=== PATIENT | male | born 1955 | race Caucasian/White ===

== ENCOUNTER 2019-04-09 20:32 | Observation (INO) | payer OTHER ==
[~2019-04-09] VITALS: Ht 182.9 cm; Wt 95.6 kg
--- NOTE | 2019-04-09 21:10 | NUR ---
PT HR 115 AFTER RECEIVING CARDIZEM BOLUS. CARDIZEM INFUSION STARTED AT 5MG/HR
[2019-04-09] MEDS ORDERED: METOPROLOL TART50 MG PO (21:11)
[2019-04-09] MEDS ORDERED: PRINIVIL20 MG PO (21:11)
[2019-04-09 21:12] LABS: BASOPHILS 0.3 % (0-2); EOSINOPHILS 1.9 % (0-7); HEMATOCRIT 39.3 % (42.0-54.0); HEMOGLOBIN 14.5 g/dL (13.5-17.5); IMMATURE GRANULOCYTES 0.5 % (0-5); LYMPHOCYTES 34.3 % (15-50); MCH 34.9 pg (26.0-34.0); MCHC 36.9 g/dL (31.0-37.0); MCV 94.7 fL (80.0-100.0); MEAN PLATELET VOLUME 10.4 fL (7.4-10.4); PLATELET COUNT 190 10x3/uL (130-400); RBC 4.15 10x6/uL (4.20-6.10); RDW 14.1 % (11.5-14.5); WBC 7.4 10x3/uL (4.8-10.8)
[2019-04-09] MEDS ORDERED: GLUCOPHAGE1000 MG PO (21:12)
[2019-04-09] MEDS ORDERED: VICTOZA0.6 MG/0.1 SQ (21:12)
[2019-04-09 21:26] LABS: ALBUMIN 4.2 g/dL (3.4-5.0); ALKALINE PHOSPHATASE 66 U/L (46-116); ALT (SGPT) 17 U/L (10-68); BILIRUBIN - TOTAL 0.69 mg/dL (0.2-1.3); CALC OSMOLALITY 283 mosm/kg (275-300); CALCIUM 9.1 mg/dL (8.5-10.1); CARBON DIOXIDE 28.2 mmol/L (21.0-32.0); CHLORIDE - SERUM 102 mmol/L (98-107); GLUCOSE 181 mg/dL (74-106); POTASSIUM - SERUM 3.7 mmol/L (3.5-5.1); PROTEIN - SERUM 7.1 g/dL (6.4-8.2); SODIUM 139 mmol/L (136-145); UREA NITROGEN 14 mg/dL (7-18); eGFR NON AFRICAN AMERICAN 80 mL/min (90-120)
[2019-04-09 21:30] VITALS: BP 142/68
[2019-04-09 21:39] LABS: CKMB 1.1 U/L (0.0-3.6); CREATINE KINASE 63 UL (21-232); MAGNESIUM - SERUM 1.5 mg/dL (1.8-2.4); THYROID STIMULATING HORMONE 2.14 uIU/mL (0.36-3.74)
[2019-04-09 21:40] LABS: TROPONIN-I < 0.017 ng/mL (0.000-0.060)
--- NOTE | 2019-04-09 21:59 | NUR ---
CARDIZEM INFUSION RATE CHANGED TO 10ML/HR PER EDP ORDER.
[2019-04-09 22:00] VITALS: BP 112/85
[2019-04-09 22:30] VITALS: BP 102/68
[2019-04-09 23:00] VITALS: BP 94/52
[2019-04-09 23:30] VITALS: BP 107/74
--- NOTE | 2019-04-09 23:30 | NUR ---
PT REPORTS DECREASE IN DISCOMFORT. PT ALERT, ORIENTED. PT DENIES NEEDS AT THIS TIME.
[2019-04-10] VITALS (7 sets, daily range): BP systolic 102–126; BP diastolic 55–79; Ht 182.9 cm; Wt 95.6 kg
--- NOTE | 2019-04-10 00:10 | NUR ---
PT RESTING ON BED. LIGHTS LOW FOR COMFORT. CALL LIGHT IN REACH.
--- NOTE | 2019-04-10 02:19 | NUR ---
RECIEVED REPORT FROM TRISHA MICHELLE IN ER AT 0128. RECIEVED TO FLOOR AT 0145 IN W/C. ALERT AND ORIENTED X4. TRANSFERED SELF FROM W/C TO BED. IV TO LEFT AC WITH CARDIZEM AT 15ML/HR. NO REDNESS OR SWELLING TO SITE. ASSESSMENT COMPLETED. DENIES ANY NEEDS AT THIS TIME.
[2019-04-10 05:21] LABS: BASOPHILS 0 % (0-2); EOSINOPHILS 1.6 % (0-7); HEMATOCRIT 36.4 % (42.0-54.0); HEMOGLOBIN 13.3 g/dL (13.5-17.5); IMMATURE GRANULOCYTES 0.5 % (0-5); LYMPHOCYTES 32.1 % (15-50); MCH 34.5 pg (26.0-34.0); MCHC 36.5 g/dL (31.0-37.0); MCV 94.5 fL (80.0-100.0); MONOCYTES 12.1 % (2-11); NEUTROPHILS 53.7 % (40-80); RBC 3.85 10x6/uL (4.20-6.10); RDW 14.3 % (11.5-14.5); WBC 5.6 10x3/uL (4.8-10.8)
[2019-04-10 05:30] LABS: PLATELET COUNT 146 10x3/uL (130-400)
[2019-04-10 05:47] LABS: ALBUMIN 3.5 g/dL (3.4-5.0); ALKALINE PHOSPHATASE 57 U/L (46-116); ALT (SGPT) 17 U/L (10-68); BILIRUBIN - TOTAL 0.93 mg/dL (0.2-1.3); CALC OSMOLALITY 284 mosm/kg (275-300); CALCIUM 8.5 mg/dL (8.5-10.1); CARBON DIOXIDE 30.6 mmol/L (21.0-32.0); CHLORIDE - SERUM 103 mmol/L (98-107); CREATININE - SERUM 0.8 mg/dL (0.6-1.3); GLUCOSE 147 mg/dL (74-106); POTASSIUM - SERUM 3.5 mmol/L (3.5-5.1); PROTEIN - SERUM 6.2 g/dL (6.4-8.2); SODIUM 142 mmol/L (136-145); UREA NITROGEN 11 mg/dL (7-18); eGFR NON AFRICAN AMERICAN > 90 mL/min (90-120)
[2019-04-10 05:48] LABS: MAGNESIUM - SERUM 1.9 mg/dL (1.8-2.4)
--- NOTE | 2019-04-10 07:15 | NUR ---
REPORT RECEIVED. WILL CONTINUE WITH POC. PT CURRENTLY LYING SEMI FOWLERS. CALL LIGHT W/I REACH. PT IS AAO AND UP AD HAL. RR EVEN AND UNLABORED ON RA. CARDIZEM INFUSING @15ML/HR VIA L.AC PIV. PT IS NPO UNTIL SEEN BY CARDIOLOGY. PT DENIES ANY NEEDS. NO S/S OF DISTRESS NOTED. WILL CTM.
[2019-04-10 12:04] LABS: APPEARANCE CLEAR (CLEAR); BILIRUBIN NEGATIVE (NEGATIVE); COLOR YELLOW (YELLOW); GLUCOSE NEGATIVE (NEGATIVE); KETONE NEGATIVE (NEGATIVE); NITRITE NEGATIVE (NEGATIVE); PROTEIN NEGATIVE (NEGATIVE)
[2019-04-10 12:14] LABS: % SATURATION 39 % (15-55); IRON 108 ug/dl (35-150); TOTAL IRON BIND CAPACITY 275 ug/dl (260-445); UNSAT IRON BIND CAPACITY 167 ug/dl (150-375)
[2019-04-10 12:45] LABS: FERRITIN 38 ng/mL (3-244)
--- NOTE | 2019-04-10 13:06 | NUR ---
I have reviewed this patient and I concur with the Shift Assessment completed by the Licensed Practical Nurse today this shift.
--- NOTE | 2019-04-10 16:52 | NUR ---
RECEIVED VERBAL ORDERS FROM TO ORDER 300MG OF RYTHMOL NOW A LOADING DOSE AND TO ALSO ADMINISTER 2100 DOSE WELL. ORDERED PLACED. WILL ADMINISTER 300MG OF MEDICATION NOW AND CTM.
--- NOTE | 2019-04-10 22:42 | NUR ---
PATIENT VERY ANGRY THAT HE HAS CONVERTED TO NORMAL SINUS AND THAT NO ONE HAS SEEN HIM SO THAT HE MAY GO HOME. PATIENT STATES THAT HE HAS RESPONSIBILITIES.
[2019-04-11] VITALS: BP 119/75
[2019-04-11 04:00] VITALS: BP 129/82
[2019-04-11 05:28] LABS: BASOPHILS 0 % (0-2); EOSINOPHILS 1.5 % (0-7); HEMATOCRIT 36.5 % (42.0-54.0); HEMOGLOBIN 13.3 g/dL (13.5-17.5); IMMATURE GRANULOCYTES 0.6 % (0-5); LYMPHOCYTES 22.7 % (15-50); MCH 34.3 pg (26.0-34.0); MCHC 36.4 g/dL (31.0-37.0); MCV 94.1 fL (80.0-100.0); MONOCYTES 13.9 % (2-11); NEUTROPHILS 61.3 % (40-80); PLATELET COUNT 118 10x3/uL (130-400); RBC 3.88 10x6/uL (4.20-6.10); RDW 14.2 % (11.5-14.5); WBC 5.2 10x3/uL (4.8-10.8)
[2019-04-11 05:40] LABS: CALC OSMOLALITY 283 mosm/kg (275-300); CALCIUM 8.2 mg/dL (8.5-10.1); CHLORIDE - SERUM 104 mmol/L (98-107); CREATININE - SERUM 0.7 mg/dL (0.6-1.3); GLUCOSE 180 mg/dL (74-106); POTASSIUM - SERUM 3.7 mmol/L (3.5-5.1); SODIUM 140 mmol/L (136-145); UREA NITROGEN 13 mg/dL (7-18); eGFR NON AFRICAN AMERICAN > 90 mL/min (90-120)
--- NOTE | 2019-04-11 07:33 | NUR ---
[id number] ANY MORE IV CARDIZEM. IV SL. WILL MONITOR.
[2019-04-11] MEDS ORDERED: PROPAFENONE HC150 MG PO (12:05)
--- NOTE | 2019-04-11 13:55 | NUR ---
IV AND TELEMETRY DCD. DC PLANS GIVEN. UNDERSTANDING VOICED.
--- NOTE | 2019-04-11 16:48 | MORECARE ---
CASE MANAGEMENT DISCHARGE SUMMARY PATIENT: CLAYTON NIXON UNIT: [id number] ADM DATE: 04/10/19 AGE: 63 : 57 SEX: M ROOM/BED: D.2115 AUTHOR: PHOEBE,DOC PHYSICIAN: REFERRING PHYSICIAN: CHIP SAAVEDRA MD DATE OF SERVICE: 04/11/19 Discharge Plan Patient Name: CLAYTON NIXON Facility: [facility]:[place] : 1955 Planned Disposition: Home Anticipated Discharge Date: 04/11/19 Discharge Date: 04/11/2019 Expected LOS: 1 Initial Reviewer: [email or web address] Initial Review Date: 04/11/2019 Generated: 04/11/19 5:47 pm Comments DCP- Discharge Planning Updated by [email or web address]: Sherwin Estrada on 04/11/19 3:[address] Patient Name: CLAYTON NIXON Admission Status: ER Accout number: [id number] Admission Date: 04-10-2019 : 1955 Admission Diagnosis: Attending: CHIP SAAVEDRA Current LOS: 1 Anticipated DC Date: 04-11-2019 Planned Disposition: Home Primary Insurance: [facility] PPO Discharge Planning Comments: CM MET WITH PT IN ROOM TO DISCUSS DISCHARGE PLANNING AND NEEDS. PT REPORTS LIVING AT HOME INDEPENDENTLY WITH SPOUSE. PT HAS NO MEDICAL EQUIPMENT AND NO OUTSIDE SERVICES ASSISTING IN THE HOME. CM DISCUSSED AVAILABILITY OF HOME HEALTH, REHAB SERVICES AND MEDICAL EQUIPMENT. PT DENIES DISCHARGE NEEDS, REPORTS HIS WILL PICK HIM UP FOR DISCHARGE HOME. Knot Bumper: Sherwin Estrada DCPIA - Discharge Planning Initial Assessment Updated by [email or web address]: Sherwin Estrada on 04/11/19 4:40 pm * Is the patient Alert and Oriented? Yes * How many steps to enter\exit or inside your home? * PCP DR. SCHAEFER, [place] * Pharmacy [facility] * Preadmission Environment Home with Family * ADLs Independent * Equipment None * Other Equipment NO MEDICAL EQUIPMENT PROVIDER PREFERENCE * List name and contact numbers for known caregivers / representatives who currently or will assist patient after discharge: [place] NIXON, SPOUSE, * Verbal permission to speak to the caregivers and representatives has been obtained from the patient. N/A * Community resources currently utilized None * Please name any agencies selected above. NONE * Additional services required to return to the preadmission environment? No * Can the patient safely return to the preadmission environment? Yes * Has this patient been hospitalized within the prior 30 days at any hospital? No Patient Name: CLAYTON NIXON Page [id number] at 1648 All edits/amendments must be made on the electronic document DICTATION DATE: 04/11/191646 RISK MANAGEMENT CONSULTANT: NELSON 04/11/191646 RPT#: [id number] DC DATE:04/11/19 STATUS: DIS IN [facility] [address] [place] [address] END OF REPORT
== END 2019-04-11 13:57 | disposition home or self-care (01) ==
LOC: D.ER 20:32 → D.M2 04-10 00:41 → D.ER 04-10 00:41 → OBSVTIME 04-10 00:41 → D.M2 04-11 13:57 → OBSVTIME 05-11 00:41
PROVIDERS: Family Medicine; ADMIT Internal Medicine Nephrology; ATTEND Internal Medicine Nephrology
DX: I48.91 Unspecified atrial fibrillation (principal); D64.9 Anemia, unspecified; E83.42 Hypomagnesemia; I10 Essential (primary) hypertension; E11.9 Type 2 diabetes mellitus without complications